=== PATIENT | female | born 1955 | race Caucasian/White ===

== ENCOUNTER 2017-01-30 12:37 | Emergency (ER) | payer BC ==
[2017-01-30] MEDS ORDERED: Albuterol/Ipratropium 3.0-0.5 MG/3 ML Neb Soln NEB ONE (12:49)
--- NOTE | 2017-01-30 13:01 | EDM.PDOC ---
ED HISTORY OF PRESENT ILLNESS - General Chief Complaint: Respiratory Problem Stated Complaint: HARD TIME BREATHING Time Seen by Provider: 01/30/17 12:40 - Related Data Allergies/ADRs: Allergies Allergy/AdvReac Type Severity Reaction Status Date / Time venom-honey bee Allergy Swelling Verified 01/30/17 12:48 [bee venom (honey bee)] Home Meds: Home Meds Ascorbate Calcium [Vitamin C] 1,000 mg PO DAILY 06/24/14 [History] DULoxetine HCl [Cymbalta] 1 tab PO DAILY 06/24/14 [History] Gabapentin 2 tab PO BID 06/24/14 [History] Omeprazole 1 tab PO DAILY 06/24/14 [History] rOPINIRole [Requip] 1 tab PO TID 06/24/14 [History] Acetaminophen/HYDROcodone [Pinnacle 325-10 MG] 1 - 2 tab PO Q4H PRN #60 tablet 06/02 [Rx] traMADol [Ultram] 1 tab PO Q6H PRN 04/28/15 [History] Diclofenac Sodium [Voltaren 1% Gel] 1 applic TOP ASDIRECTED PRN 07/11/15 [ History] cycloSPORINE [Restasis] 1 drop EYEBOTH ASDIRECTED 07/11/15 [History] ALPRAZolam [Xanax] 1 tab PO DAILY PRN 09/13/16 [History] Ascorbic Acid/Bioflavonoids [Vit C-Bioflavonoids SA] 1,000 mg PO DAILY 09/13/16 [History] Calcium Carbonate/Vitamin D3 [Calcium 600 + Vit D 200] 2 tab PO DAILY 09/13/16 [ History] Docusate Sodium [Colace] 100 mg PO DAILY 09/13/16 [History] Ferrous Gluconate [Iron] 1 tab PO DAILY 09/13/16 [History] Ipratropium/Albuterol Sulfate [Combivent Respimat Inhal [place]] 1 spray INH DAILY 09/13/16 [History] Multivits-Min/Iron/FA/Lutein [Centrum Silver Women Tablet] 1 tab PO DAILY [History] Past Medical History HEENT History: Reports: Other (see below) Other HEENT History: wears glasses, , has top permanent bridge Cardiovascular History: Reports: Heart murmur, Other (see below) Other Cardiovascular History: Treatment for hypertension in past Respiratory History: Reports: COPD, SOB Other Respiratory History: History 40 yrs smoking, current use 1 -2 pack per day Gastrointestinal History: Reports: GERD, GI bleed Other Gastrointestinal History: Heartburn managed with maintenance Omeprazole dosing, GI bleed post Gastric by-pass Genitourinary History: Reports: None 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: Musculoskeletal History: Reports: Arthritis, Back pain, chronic, Fibromyalgia, RA Other Musculoskeletal History: hx: fracturing clavicle as baby, Degenerative Disc Disease, Chronic Pain Syndrome (Lumbar), HIP Pain bilaterally, Spondylosis lumbosacrial region Neurological History: Reports: Headaches, chronic, Neuropathy, peripheral, Other (see below) Other Neuro History: Chronic Pain Syndrome Psychiatric History: Reports: Anxiety, Depression Endocrine/Metabolic History: Reports: None Hematologic History: Reports: Blood transfusion(s) Other Hematologic History: Many blood transfusions over the years Immunologic History: Reports: None Oncologic (Cancer) History: Reports: None Dermatologic History: Reports: None - Infectious Disease History Infectious Disease History: Reports: None - Past Surgical History Head Surgeries/Procedures: Reports: None HEENT Surgical History: Reports: None Cardiovascular Surgical History: Reports: None Respiratory Surgical History: Reports: None GI Surgical History: Reports: Appendectomy, Bariatric procedure, Colonoscopy, Hernia, inguinal Other GI Surgeries/Procedures: Gastric Bypass Female Surgical History: Reports: Hysterectomy, Salpingo-oophorectomy Endocrine Surgical History: Reports: None Neurological Surgical History: Reports: None Musculoskeletal Surgical History: Reports: Knee replacement Other Musculoskeletal Surgeries/Procedures:: Bilateral total knee replacement, revision to Left Total Knee, had trail pain stimulator insertion, foot surgery fort benign tumor Oncologic Surgical History: Reports: None Dermatological Surgical History: Reports: None Social & Family History - Family History Family Medical History: Noncontributory - Tobacco Use Smoking Status *Q: Current Every Day Smoker Years of Tobacco use: 30 Packs/Tins Daily: 1 Used Tobacco, but Quit: No Second Hand Smoke Exposure: Yes - Caffeine Use Caffeine Use: Reports: Coffee - Alcohol Use Days Per Week of Alcohol Use: 0 Number of Drinks Per Day: 1 Total Drinks Per Week: 0 - Recreational Drug Use Recreational Drug Use: No Drug Use in Last 12 Months: No ED ROS GENERAL - Review of Systems Review Of Systems: See Below (See history of present illness) ED EXAM, GENERAL - Physical Exam Exam: See Below (See history of present illness) Course - Vital Signs Last Recorded V/S: Last Vital Signs Temp 36.2 C 01/30/17 12:45 Pulse 103 H 01/30/17 12:45 Resp 16 01/30/17 12:45 BP 135/79 01/30/17 12:45 Pulse Ox 94 L 01/30/17 12:49 - Orders/Labs/Meds Orders: Active Orders 24 hr Category Date Time Status EKG Documentation Completion [RC] STAT Care 01/30/17 12:49 Active RT Aerosol Therapy [RC] ASDIRECTED Care 01/30/17 12:49 Active CBC WITH AUTO DIFF [HEME] Stat Lab 01/30/17 12:53 Ordered Meds: Medications Discontinued Medications Generic Name Dose Route Start Last Admin Trade Name Freq PRN Reason Stop Dose Admin Albuterol/Ipratropium 3 ml 01/30/17 12:49 01/30/17 12:54 Duoneb 3.0-0.5 Mg/3 Ml NEB 01/30/17 12:50 3 ml ONETIME ONE Administration Departure - Departure Time of Disposition: 13:00 Disposition: Home, Self-Care 01 Condition: good Clinical Impression: Needlestick injury accident with exposure to body fluid Forms: ED Department Discharge Additional Instructions: The following information is given to patients seen in the emergency department who are being discharged to home. This information is to outline your options for follow-up care. We provide all patients seen in our emergency department with a follow-up referral. The need for follow-up, as well as the timing and circumstances, are variable depending upon the specifics of your emergency department visit. If you don't have a primary care physician on staff, we will provide you with a referral. We always advise you to contact your personal physician following an emergency department visit to inform them of the circumstance of the visit and for follow-up with them and/or the need for any referrals to a consulting specialist. The emergency department will also refer you to a specialist when appropriate. This referral assures that you have the opportunity for follow-up care with a specialist. All of these measure are taken in an effort to provide you with optimal care, which includes your follow-up. Under all circumstances we always encourage you to contact your private physician who remains a resource for coordinating your care. When calling for follow-up care, please make the office aware that this follow-up is from your recent emergency room visit. If for any reason you are refused follow-up, please contact the [facility] Emergency Department at and asked to speak to the emergency department charge nurse. [facility] [address] [place] [id number] - My Orders Last 24 Hours: My Active Orders 01/30/17 12:49 EKG Documentation Completion [RC] STAT RT Aerosol Therapy [RC] ASDIRECTED 01/30/17 12:53 CBC WITH AUTO DIFF [HEME] Stat - Assessment/Plan Last 24 Hours: My Active Orders 01/30/17 12:49 EKG Documentation Completion [RC] STAT RT Aerosol Therapy [RC] ASDIRECTED 01/30/17 12:53 CBC WITH AUTO DIFF [HEME] Stat
[2017-01-30] MEDS ORDERED: Albuterol 0.5% 5 MG/ML Neb Soln 20 ML Bottle NEB ONE (13:13)
[2017-01-30] MEDS ORDERED: predniSONE 20 MG Tab PO ONE (13:14)
[2017-01-30] MEDS ORDERED: Albuterol 0.083% 2.5 MG/3 ML Neb Soln NEB ONE (13:18)
--- NOTE | 2017-01-30 14:06 | CR ---
EXAMINATION: Two-view chest (PA and Lateral views). HISTORY: Shortness of breath. FINDINGS: The trachea is midline. The cardiomediastinal silhouette is within normal limits. No pulmonary infil trates, effusions or pneumothorax. Mild interstitial prominence and hyperinflation. Osseous structures appear unremarkable. Mild degenerative changes noted within the thoracic spine. IMPRESSION: No acute cardiopulmonary process.
[2017-01-30 14:10] VITALS: BP 135/70
== END 2017-01-30 14:31 | disposition home or self-care (01) ==
LOC: MW.ED 12:37
DX: J20.9 Acute bronchitis, unspecified (principal); I10 Essential (primary) hypertension; J44.9 Chronic obstructive pulmonary disease, unspecified; K21.9 Gastro-esophageal reflux disease without esophagitis; M19.90 Unspecified osteoarthritis, unspecified site; F17.210 Nicotine dependence, cigarettes, uncomplicated; Z98.890 Other specified postprocedural states; F41.8 Other specified anxiety disorders; Z96.653 Presence of artificial knee joint, bilateral; Z79.899 Other long term (current) drug therapy; Z91.030 Bee allergy status; Z98.84 Bariatric surgery status; Z90.710 Acquired absence of both cervix and uterus; Z90.49 Acquired absence of other specified parts of digestive tract
CPT/HCPCS: 36415; 71020; 85025; 93005; 94640; 94664; 99285; A9270; 99283